=== PATIENT | female | born 1955 | race Two or more races ===

== ENCOUNTER 2020-11-27 09:30 | Inpatient (IN) | payer OTHER ==
[~2020-11-27] VITALS: Ht 160 cm; Wt 81.6 kg
[2020-11-27] MEDS ORDERED: HORIZANT300 MG PO (12:31)
[2020-11-27] MEDS ORDERED: ENALAPRIL MALEA25 GM PO (12:32)
[2020-11-27] MEDS ORDERED: FORTAMET1000 MG PO (12:32)
[2020-11-27] MEDS ORDERED: GLIMEPIRIDE4 M1 PO (12:33)
[2020-11-27] MEDS ORDERED: HUMLOG (12:33)
[2020-11-27] MEDS ORDERED: LANTUS (12:34)
[2020-11-27] MEDS ORDERED: ADULT ASPIRIN81 MG PO (12:35)
[2020-12-04] MEDS ORDERED: NABUMETONE500 MG (09:37)
[2020-12-04] MEDS ORDERED: ENALAPRIL MALE2.5 MG (09:37)
[2020-12-04] MEDS ORDERED: GABAPENTIN300 M2 (09:37)
[2020-12-04] MEDS ORDERED: NAPROXEN500 MG (09:38)
[2020-12-04] MEDS ORDERED: SIMVASTATIN20 MG (09:38)
[2020-12-04] MEDS ORDERED: RESTORIL15 MG (09:38)
[2020-12-04] MEDS ORDERED: CEFADROXIL500 MG (09:40)
[2020-12-04] MEDS ORDERED: DICLOFENAC POTA50 MG (09:40)
[2020-12-04] MEDS ORDERED: SEMGLEE100 UNIT/1 (09:42)
[2020-12-04] MEDS ORDERED: ADMELOG100 UNIT/1 (09:42)
[2020-12-06] MEDS ORDERED: DUI500 PO (16:44)
[2020-12-06] MEDS ORDERED: PERCOCET 5-3251 EACH PO (16:44)
[2020-12-06] MEDS ORDERED: ELIQUIS2.5 MG PO (16:44)
== END 2020-12-06 18:36 | DRG 470 ==
LOC: O/R 12-04 05:56 → SURH 12-04 05:56
PROVIDERS: ADMIT Orthopaedic Surgery; ATTEND Orthopaedic Surgery
PROC: 0SRC0J9 Replacement of Right Knee Joint with Synthetic Substitute, Cemented, Open Approach (ICD-10-PCS; principal; 2020-12-04 07:00)
DX: M17.11 Unilateral primary osteoarthritis, right knee (principal); I10 Essential (primary) hypertension; E11.9 Type 2 diabetes mellitus without complications